=== PATIENT | male | born 2005 | race Caucasian/White ===

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

== ENCOUNTER 2023-05-19 08:16 | Emergency (ER) | payer BC, OTHER, SELFPAY ==
[2023-05-19 08:30] VITALS: BP 138/82; PULSE 103; RESP 19; TEMP 36.6; O2SAT 98; BMI 34.4
--- NOTE | 2023-05-19 08:40 | EXP.UTC ---
Discharge Plan Disposition Patient Disposition: Home, Self-Care Condition: Good Prescriptions Prescriptions: New cefdinir 300 mg capsule 300 mg PO BID Qty: 20 0RF No Action cetirizine [Zyrtec] 5 mg Tablet 5 mg PO DAILY Referrals Follow up/Referrals: Berny Pedraza MD [Primary Care Provider] - See instructions Activity Restrictions/Add. Instructions Additional Instructions/Restrictions: *Monitor Temp, Over the counter Motrin or Tylenol as directed/as needed Tylenol every 4 hours and Motrin every 6 hours (as long as your family doctor has told you that you can take it) for fever or pain. and straight to ER if unable to lower temp less than 101.0 after medication given *Warm salt water gargles may help to soothe the throat *Throat Lozenges? *Warm fluids like tea with honey may help to soothe the throat? *Sleep elevated *Humidifier/Vaporizer Encourage fluids, water, Gatorade, powerade, pedialyte if /toddler/or child *Cold fluids, popsicles and ice cream may feel good on his throat Follow up IMMEDIATELY for new or worsening symptoms or no Noticeable improvement over the next 48-72 hours. 911 for difficulty breathing or swallowing Clinical Impressions Clinical Impression: Pharyngitis Qualifiers: Pharyngitis/tonsillitis etiology: unspecified etiology Qualified Code(s): J02.9 - Acute pharyngitis, unspecified Stand Alone Forms Stand Alone Forms: Work/School Release Instructions Patient Instructions: Sore Throat, Cefdinir Discharge ED Provider: Noemy Cowan [facility] General Stated complaint: sore throat Mode of Arrival: Ambulatory Source of Information: Patient Limitations: No Limitations Time Seen by Provider: 05/19/23 08:40 Description of Symptoms (Recalled from Triage Doc. by RN): Pt's symptoms are sore throat. Pt's spouse has strep. HEENT Symptoms (Recalled from RN notes): Yes Resp Symptoms (Recalled from RN notes): No Skin Symptoms (Recalled from RN notes): No MS Symptoms (Recalled from RN notes): No Functional Status (Recalled from RN notes): n/a History of Present Illness Provider Complaint: Patient states that his significant other was recently dx with strep throat and now he is having sore throat and hurting when he swallows States that today it was still bothering him so he came in to get checked thinking he may have it now Related Data Home Medications Medication Instructions Recorded Confirmed cetirizine 5 mg tablet 5 mg PO DAILY Allergy symptoms 12/30/21 05/19/23 Previous Rx's Medication Instructions Recorded cefdinir 300 mg capsule 300 mg PO BID #20 caps 05/19/23 Allergies Allergy/AdvReac Type Severity Reaction Status Date / Time No Known Allergies Allergy Verified 05/19/23 08:40 Worker's Comp Is this a Worker's Comp case?: No [facility] Disclaimer: The information contained in this section may have been updated after the patient was seen, as this information can be updated by other users. Medical History Asthma Depression Migraine Social History Smoking Status: Never smoker alcohol intake: never current occupational status: other Travel in the last 8 weeks: None household members: family housing: apartment ROS Obtained: Yes All systems reviewed & no additional complaints except as documented and Yes Systems reviewed as appropriate & no additional complaints except as documented Constitutional Constitutional: Reports system reviewed and no additional complaints, except as documented and Reports as per HPI ENT Ears, Nose, Mouth, and Throat: Reports system reviewed and no additional complaints, except as documented, Reports as per HPI and Reports sore throat Cardiovascular Cardiovascular: Reports system reviewed and no additional complaints, except as documented and Reports as per HPI Respiratory Respiratory: Reports system reviewed and no additional complaints, except as documented and Reports as per HPI Gastrointestinal Gastrointestingal: Reports system reviewed and no additional complaints, except as documented and as per HPI Physical Exam General General appearance: alert and in no apparent distress ENT ENT exam: Present mucous membranes moist Expanded ENT Exam Nose exam: Absent sinus tenderness Throat exam: Present tonsillar erythema Respiratory Respiratory exam: Present normal lung sounds bilaterally; Absent respiratory distress or wheezes Cardiovascular Cardiovascular exam: Present regular rate, normal rhythm and normal heart sounds Neurological Exam Neurological exam: Present alert, oriented X3 and normal gait Medical Decision Making Roland Inquiry Pt receiving controlled substance: No Roland was queried for this patient: No Vital Signs: 05/19/23 08:30 Temperature 97.8 F Temperature Source Oral Pulse Rate [Right Radial] 103 H Respiratory Rate 19 Blood Pressure [Right Arm] 138/82 Blood Pressure Mean [Right Arm] 100 Blood Pressure Source [Right Arm] Automatic Cuff Blood Pressure Position [Right Arm] Sitting 02 Sat by Pulse Oximetry 98 Oxygen Delivery Method Room Air Lab Data Lab results reviewed: Yes I reviewed the patient's lab results.
[2023-05-19 08:50] LABS: UTC Strep Screen (Rapid) Negative (Negative)
[2023-05-19 09:07] VITALS: BP 138/82; PULSE 103; RESP 19; TEMP 36.6; O2SAT 98
== END 2023-05-19 09:07 | disposition home or self-care (01) ==
PROVIDERS: Emergency Provider Nurse Practitioner; PCP Internal Medicine Adolescent Medicine
DX: J02.9 Acute pharyngitis, unspecified (principal); Z20.818 Contact with and (suspected) exposure to other bacterial communicable diseases
CPT/HCPCS: 87880; 99212; 99214; G0463

== ENCOUNTER 2023-11-08 14:43 | Outpatient (CLI) | payer OTHER, SELFPAY | END 2023-11-08 23:59 | disposition home or self-care (01) | LOC: LAB.DROPOF 14:44 | PROVIDERS: PCP Nurse Practitioner Family; Visit Provider Nurse Practitioner Family | DX: Z13.89 Encounter for screening for other disorder (principal) | CPT/HCPCS: 84155 ==

== ENCOUNTER 2023-11-10 15:51 | Outpatient (CLI) | payer OTHER, SELFPAY ==
[2023-11-13 04:19] LABS: Protein C Functional 92 % (73-180); Protein S, Free 118 % (61-136); Protein S, Total 69 % (60-150); Protein S-Functional 103 % (63-140)
== END 2023-11-10 23:59 | disposition home or self-care (01) ==
LOC: LAB 15:53
PROVIDERS: PCP Nurse Practitioner Family; Visit Provider Nurse Practitioner Family
DX: Z13.89 Encounter for screening for other disorder (principal)
CPT/HCPCS: 36415; 85302; 85305; 85306

== ENCOUNTER 2024-07-17 11:41 | Outpatient (CLI) | payer OTHER, SELFPAY ==
--- NOTE | 2024-07-17 11:45 | XR_ITS ---
FINAL REPORT CLINICAL HISTORY: right shoulder pain - no known injury FINDINGS: RIGHT SHOULDER Three views demonstrate no acute fracture or dislocation. The visualized joint spaces are normally aligned. The soft tissues are unremarkable. IMPRESSION: No acute bony abnormality. Reviewed, Interpreted and Dictated by Kevyn Burgess MD Transcribed by Devika Francisco Authenticated and [facility]
--- NOTE | 2024-07-17 11:45 | XR_ITS ---
FINAL REPORT CLINICAL HISTORY: right upper arm pain - no known injury FINDINGS: RIGHT HUMERUS 2 views were obtained. There is no acute fracture or dislocation. Joint spaces are maintained. No acute soft tissue abnormality is seen. IMPRESSION: No acute bony abnormality. Reviewed, Interpreted and Dictated by Kevyn Burgess MD Transcribed by Devika Francisco Authenticated and [facility]
== END 2024-07-17 23:59 | disposition home or self-care (01) ==
LOC: RAD 11:43
PROVIDERS: PCP Nurse Practitioner Family; Visit Provider Nurse Practitioner Family
DX: M79.621 Pain in right upper arm (principal); M25.511 Pain in right shoulder
CPT/HCPCS: 73030; 73060

== ENCOUNTER 2024-07-28 15:36 | Outpatient (CLI) | payer OTHER, SELFPAY ==
--- NOTE | 2024-07-28 15:41 | XR_ITS ---
FINAL REPORT CLINICAL HISTORY: MRI CLEARANCE FINDINGS: ORBITS Look up and look down views were obtained. No metallic foreign body is identified. IMPRESSION: No metallic foreign body identified. Reviewed, Interpreted and Dictated by Tati Castillo MD Transcribed by Carolyn Zamorano Authenticated and . [facility]
--- NOTE | 2024-07-28 16:15 | MR_ITS ---
PROCEDURE INFORMATION: Exam: MR Right Upper Extremity Other Than Joint Without Contrast, Humerus. Exam date and time: 07/28/2024 4:02 PM Age: 18 years old Clinical indication: PT stated pain mainly in right shoulder area; Additional info: Right upper arm pain, injury TECHNIQUE: Imaging protocol: Magnetic resonance imaging of the right upper extremity other than joint without contrast. Exam focused on the humerus. COMPARISON: No relevant prior studies available. FINDINGS: Bones/joints: Osseous alignment appears normal. No focal osseous lesion. No significant arthritic change. Soft tissues: Unremarkable. No abnormal mass or soft tissue edema IMPRESSION: No acute findings. There is clinical concern specifically for abnormality of the shoulder or elbow, dedicated joint imaging would be recommended
== END 2024-07-28 23:59 | disposition home or self-care (01) ==
LOC: RAD 15:37
PROVIDERS: PCP Nurse Practitioner Family; Visit Provider Nurse Practitioner Family
DX: M79.621 Pain in right upper arm (principal); Z13.89 Encounter for screening for other disorder
CPT/HCPCS: 70200; 73218

== ENCOUNTER 2024-08-17 17:00 | Outpatient (RCR) | payer OTHER, SELFPAY ==
--- NOTE | 2024-07-26 14:46 | HMH.OTOPEV ---
OT Inpatient Evaluation Rehab OT Outpatient Eval Start: 07/26/24 14:33 Freq: Status: Active Protocol: Document 07/26/24 14:33 [email or web address] (Rec: 07/26/24 14:[address] [facility] [id number] E-signed By Gayle Hope, OT Outpatient Therapy Subjective History Subjective History Pt is a 18 year old male who reports to therapy for initial evaluation to right shoulder. Pt began having posterior scapula and clavicle pain ~5 weeks ago. He has also experienced intermittent numbness/tingling in fingers ( but not down the arm). Pt does not recall a specific injury causing pain/numbness to begin . 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 He has a MRI scheduled this coming Wednesday. Pt is right hand dominant. Pt demonstrates with decreased AROM and strength at right shoulder. Pt will continue to be seen in order to address all deficits. New diagnosis of cancer in past 12 No months? Chief Complaint Pain,Stiff,Paresthesia, Weakness Symptom Type Ache,Throb,Sharp,Burning, Tingling Symptoms Relieved By Rest/Positioning,Prescription Meds Symptoms Aggravated By Physical Activity,Lifting Prior Functional Limitations None Current Functional Limitations Reaching,Lifting,Housework, Dressing,Driving,Sleeping, Standing,Recreation Activity Symptom Description Constant but Variable Level of pain today (0-10) 5 Pain scale - at its best (0-10) 2 Pain scale - at its worst (0-10) 10 Shoulder/Elbow Eval Shoulder Objective Measurements Shoulder ROM Right Shoulder Abduction Active Range of 100 degrees Motion (degrees) Shoulder Flexion Active Range of Motion 115 degrees (degrees) Query Text: Shoulder External Rotation Active Range 68 degrees of Motion (degrees) Shoulder Internal Rotation Active Range 40 degrees of Motion (degrees) Shoulder MMT Shoulder Abduction Strength Grade 4- Good- Shoulder Flexion Strength Grade 4- Good- Shoulder External Rotation Strength 4- Good- Grade Shoulder Internal Rotation Strength 4- Good- Grade Shoulder Strength Patient Testing Sitting Position Elbow Objective Measurements QuickDASH Activities Please rate your ability to do the following activities in the last week by selecting the number below the appropriate response. 1. Open a tight or new jar. Moderate difficulty 2. Do heavy road service locksmith (e.g., wash Mild difficulty acosta, floors). 3. Carry a shopping bag or briefcase. Severe difficulty 4. Wash your back. Unable 5. Use a knife to cut food. No difficulty 6. Recreational activities in which you Unable take some force or impact through your arm, shoulder, or hand (e.g., golf, hammering, tennis, etc.). 7. During the past week, to what extent Moderately has your arm, shoulder or hand problem interfered with your normal social activities with family, friends, neighbors or groups? 8. During the past week, were you Very limited limited in your work or other regular daily activites as a result of your arm, shoulder or hand problem? 9. Arm, shoulder or hand pain. Extreme 10. Tingling (pins and needles) in your Mild arm, shoulder or hand. 11. During the past week, how much Moderate difficulty difficulty have you had sleeping because of the pain in your arm, shoulder or hand? Quick DASH 37 OT Outpatient Assessment Impairments Problems/Impairments Palpation Tenderness,Impaired Range of Motion,Impaired Strength,Impaired Endurance, Impaired Lifting,Impaired Household Care,Impaired Recreational Activities, Impaired Work Activities, Subjective C/O Pain Prognosis Rehab Potential Good Clinical Impression Consistent with Diagnosis Yes Short Term Goals Number of Weeks 3 Increase Range of Motion Yes: Flex: 130 Abd: 120 ER: 75 IR: 50 Increase Strength Yes: 4/5 throughout R shoulder Increase Endurance Yes: Pt will tolerate R shoulder exercises for ~20 minutes prior to rest. Decrease Subjective C/O Pain Yes: 6/10 at worst Patient to be Ind w/ HEP Yes: AAROM/AROM exercises: pulleys, wand, wall wipes Improve Quick Dash Score Yes: Activities: 30 or below Residential Goals Number of Weeks 6 Increase Range of Motion Yes: Flex: 140 Abd: 140 ER: 80 IR: 60 Increase Strength Yes: 5/5 throughout R shoulder Increase Endurance Yes: Pt will tolerate R shoulder exercises for ~30 minutes prior to rest. Decrease Subjective C/O Pain Yes: 3/10 at worst Patient to be Ind w/ Advanced HEP Yes: Advanced strengthening exercises Improve Quick Dash Score Yes: Activities: 20 or below Outpatient Therapy Plan of Care Treatment Plan May Include Therapeutic Exercise Including Home Yes Exercise Program Manual Therapy Techniques Yes Neuromuscular Re-education Yes Therapeutic Activities to Return to Yes Previous Functional/Work Level ADL/Self Care Education Yes Thermal Modalities Yes Electrical Stimulation Yes Ultrasound/Phonophoresis Yes Iontophoresis Yes Orthotics/Bracing/Splinting Yes Massage Yes Eval/Re-Eval Yes Frequency Times per week 2 Duration Number of Weeks 6 Addendums This patient is a candidate for social No or vocational rehab? Patient/Guardian verbally acknowledges Yes understanding of treatment program and consents to further treatment? Patient/Guardian verbally acknowledges Yes understanding of diagnosis, prognosis and goals for treatment? Eval Complexity OT Charge [id number] - Moderate Complexity PHYSICIAN CERTIFICATION: I certify the specified therapy services for Samson Paulino are required, authorized, and reviewed every 30 days.
== END 2024-08-17 23:59 | disposition home or self-care (01) ==
LOC: OT 17:00
PROVIDERS: PCP Nurse Practitioner Family; Visit Provider Nurse Practitioner Family
DX: M25.511 Pain in right shoulder (principal)
CPT/HCPCS: 97014; 97110; 97140; 97166; 97530; G0283

== ENCOUNTER 2024-08-28 17:30 | Outpatient (RCR) | payer OTHER, SELFPAY ==
--- NOTE | 2024-08-23 16:43 | HMH.RHREAS ---
Rehab Reassessment Rehab OP Re-assessment Start: 08/21/24 16:58 Freq: Status: Active Protocol: Document 08/21/24 17:04 LIVAN (Rec: 08/21/24 17:54 LIVAN [id number]) E-signed By Deandra Castaneda OT QuickDASH Activities Please rate your ability to do the following activities in the last week by selecting the number below the appropriate response. 1. Open a tight or Moderate difficulty new jar. 2. 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 g., wash acosta, floors). 3. Carry a shopping Severe difficulty bag or briefcase. 4. Wash your back. Unable 5. Use a knife to No difficulty cut food. 6. Recreational Unable activities in which you take some force or impact through your arm, shoulder, or hand (e.g., golf, hammering, tennis, etc.). 7. During the past Moderately week, to what extent has your arm, shoulder or hand problem interfered with your normal social activities with family, friends , neighbors or groups? 8. During the past Very limited week, were you limited in your work or other regular daily activites as a result of your arm, shoulder or hand problem? 9. Arm, shoulder or Extreme hand pain. 10. Tingling (pins Moderate and needles) in your arm, shoulder or hand. 11. During the past Mild difficulty week, how much difficulty have you had sleeping because of the pain in your arm, shoulder or hand? Quick DASH 38 Rehab Re-assessment Subjective Subjective It is hurting today where I hurt it helping lift a heating element. Objective Objective Notes Pt continues to be seen twice a week in order to address right shoulder deficits. Each session, pt engages in R shoulder AROM, AAROM, and strengthening exercises. Pt also receives PROM manual stretching to right shoulder in all planes; flexion, abduction, ER, and IR. Modalities are provided in order to decrease pain/inflammation. Pt hurt R shoulder today at work. Pt was helping lift a heating element and heard a pop in shoulder. pt's arm has been feeling since pop and has difficulty with driving and holding phone in front of face. Pt has pain and increased numbness in R arm. Pt has also been trying to get an MRI for R shoulder. Assessment Progress Assessment Progressing as Expected Assessment Notes Pt is consistent about attending therapy sessions. Pt 's AROM has improved slightly since initial evaluation, but still remains limited. Pt's pain is still reaching 9/10 at worst. Current AROM R shoulder Flex: 125 degrees Abd: 120 degrees ER: 68 degrees IR: 40 degrees Current QuickDash Activities: 38 Patient goals met none at this time Goals Not Met see below Revised Goals Pt has potential to meet STG and LTG. STG 1-6 LTG 1-6 Plan Plan continue with OT POC at this time Frequency of Therapy 2x/wk Duration of therapy 6 more wks Time and Billing Re-Eval Time 8 Re-Eval Billing 1 Units Charge for OT Yes reassessment? PHYSICIAN CERTIFICATION: I certify the specified therapy services for Samson Paulino are required, authorized, and reviewed every 30 days.
== END 2024-08-28 23:59 | disposition home or self-care (01) ==
LOC: OT 17:30
PROVIDERS: PCP Nurse Practitioner Family; Visit Provider Nurse Practitioner Family
DX: M25.511 Pain in right shoulder (principal)
CPT/HCPCS: 97014; 97110; 97140; 97168; G0283

== ENCOUNTER 2024-09-14 15:23 | Outpatient (CLI) | payer OTHER, SELFPAY ==
--- NOTE | 2024-09-14 15:45 | MR_ITS ---
FINAL REPORT TECHNIQUE: Multiplanar MR without gadolinium enhancement CLINICAL HISTORY: right shoulder pain, CHRONIC. LIMITED ROM COMPARISON: None FINDINGS: Marrow signal: Unremarkable Glenohumeral joint: Unremarkable Acromioclavicular joint: Unremarkable Rotator cuff apparatus: Unremarkable Labrum: Unremarkable Biceps tendon: Unremarkable IMPRESSION: Unremarkable MRI of the shoulder without evidence of rotator cuff or labral abnormality. Reviewed, Interpreted and Dictated by Steven Muñoz MD Transcribed by Darlin Arnold Authenticated and [facility]
== END 2024-09-14 23:59 | disposition home or self-care (01) ==
LOC: RAD 15:23
PROVIDERS: PCP Nurse Practitioner Family; Visit Provider Nurse Practitioner Family
DX: M25.511 Pain in right shoulder (principal)
CPT/HCPCS: 73221

== ENCOUNTER 2024-10-12 15:30 | Outpatient (RCR) | payer OTHER, SELFPAY ==
--- NOTE | 2024-09-26 16:00 | HMH.RHREAS ---
Rehab Reassessment Rehab OP Re-assessment Start: 09/26/24 14:55 Freq: Status: Active Protocol: Document 09/26/24 14:56 SARAH (Rec: 09/26/24 15:58 [email or web address] [id number]) E-signed By Gayle Hope OT QuickDASH Activities Please rate your ability to do the following activities in the last week by selecting the number below the appropriate response. 1. Open a tight or Moderate difficulty new jar. 2. 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 g., wash caosta, floors). 3. Carry a shopping Severe difficulty bag or briefcase. 4. Wash your back. Unable 5. Use a knife to No difficulty cut food. 6. Recreational Unable activities in which you take some force or impact through your arm, shoulder, or hand (e.g., golf, hammering, tennis, etc.). 7. During the past Extremely week, to what extent has your arm, shoulder or hand problem interfered with your normal social activities with family, friends , neighbors or groups? 8. During the past Very limited week, were you limited in your work or other regular daily activites as a result of your arm, shoulder or hand problem? 9. Arm, shoulder or Severe hand pain. 10. Tingling (pins Mild and needles) in your arm, shoulder or hand. 11. During the past Severe difficulty week, how much difficulty have you had sleeping because of the pain in your arm, shoulder or hand? Quick DASH 41 Rehab Re-assessment Subjective Subjective I honestly think it is worse. Objective Objective Notes Pt continues to be seen twice a week in order to address right shoulder deficits. Each session, pt engages in R shoulder AROM, AAROM, and strengthening exercises. Pt also receives PROM manual stretching to right shoulder in all planes; flexion, abduction, ER, and IR. Modalities are provided in order to decrease pain/inflammation. Assessment Progress Assessment Slower Than Expected Assessment Notes Pt has not been seen for 28 days. Pt reports his pain is still reaching a 9/10 at worst. Pt's AROM has improved slightly since last re-assessment, but still remains limited. Pt's did have a MRI completed of R shoulder with no acute findings. Pt complains of pain in anterior shoulder traveling into pec muscles across chest. Reports difficulty completing job duties due to pain. He also continues hear audible pops in the right shoulder during daily work activities. Due to continued pain, therapist recommends pt seen ortho for further evaluation and plan of care. Current AROM R shoulder Flex: 130 degrees Abd: 125 degrees ER: 75 degrees IR: 35 degrees Current QuickDash Activities: 41 Patient goals met Pt has not met any goals at this time. Goals Not Met See below Revised Goals Pt has potential to meet STG and LTG. STG 1-6 LTG 1-6 Plan Plan Continue with plan of care at this time. Therapist recommends ortho evaluation; pt agreeable Frequency of Therapy 2x's a week Duration of therapy 4 more weeks Time and Billing Re-Eval Time 13 Re-Eval Billing 1 Units Charge for OT Yes reassessment? PHYSICIAN CERTIFICATION: I certify the specified therapy services for Samson Paulino are required, authorized, and reviewed every 30 days.
== END 2024-10-12 23:59 | disposition home or self-care (01) ==
LOC: OT 15:30
PROVIDERS: Visit Provider Nurse Practitioner Family
DX: M25.511 Pain in right shoulder (principal)
CPT/HCPCS: 97014; 97032; 97110; 97140; 97168; G0283